=== PATIENT | female | born 1975 | race Caucasian/White ===

== ENCOUNTER 2023-07-10 19:34 | Emergency (ER) | payer BC ==
[2023-07-10] MEDS ORDERED: Ibuprofen 800 MG TAB ONE (19:53)
[2023-07-10] MEDS ORDERED: Lidocaine 1% PF 5 ML VIAL ONE (20:14)
== END 2023-07-10 21:06 | disposition home or self-care (01) ==
LOC: BURERS 19:34
DX: S62.623A Displaced fracture of middle phalanx of left middle finger, initial encounter for closed fracture (principal); V80.010A Animal-rider injured by fall from or being thrown from horse in noncollision accident, initial encounter
CPT/HCPCS: 26725